=== PATIENT | male | born 2000 | race Caucasian/White ===

== ENCOUNTER 2019-03-30 08:56 | Emergency (ER) | payer MEDICAID ==
[~2019-03-30] VITALS: Ht 177.8 cm; Wt 66.0 kg
[2019-03-30] MEDS ORDERED: IBUPROFEN 600MG TABLET PO ONE (10:45)
[2019-03-30] MEDS ORDERED: ONDANSETRON 4MG ODT PO ONE (10:45)
[2019-03-30 12:16] VITALS: BP 127/82
== END 2019-03-30 12:18 | disposition home or self-care (01) ==
LOC: ER 08:56
DX: B34.9 Viral infection, unspecified (principal)
CPT/HCPCS: 87804; 99283; Q0162